=== PATIENT | female | born 1975 | race African-American/Black ===

== ENCOUNTER 2020-05-25 11:24 | Emergency (ER) | payer MEDICAID ==
[~2020-05-25] VITALS: Ht 160 cm; Wt 55.0 kg
[2020-05-25 13:33] VITALS: BP 136/81
== END 2020-05-25 14:45 | disposition home or self-care (01) ==
LOC: ER 11:24
DX: R55 Syncope and collapse (principal); I12.9 Hypertensive chronic kidney disease with stage 1 through stage 4 chronic kidney disease, or unspecified chronic kidney disease; N18.9 Chronic kidney disease, unspecified
CPT/HCPCS: 93005; 99283